=== PATIENT | male | born 1980 | race African-American/Black ===

== ENCOUNTER 2019-06-26 00:09 | Emergency (ER) | payer OTHER | END 2019-06-26 01:29 | disposition left against medical advice (07) | LOC: ER 00:09 | DX: Z53.21 Procedure and treatment not carried out due to patient leaving prior to being seen by health care provider (principal) ==

== ENCOUNTER 2024-02-14 19:02 | Emergency (ER) | payer OTHER ==
[~2024-02-14] VITALS: Ht 177.8 cm; Wt 91.0 kg
[2024-02-14 19:11] VITALS: BP 140/98; PULSE 98; RESP 16; TEMP 98.4; O2SAT 98
[2024-02-14] MEDS ORDERED: ONDANSETRON 4MG ODT PO STA (21:09)
[2024-02-14] MEDS ORDERED: KETOROLAC 30MG/ML VIAL IM ONE (21:15)
== END 2024-02-14 22:13 | disposition left against medical advice (07) ==
LOC: ER 19:02
DX: R14.0 Abdominal distension (gaseous) (principal); I10 Essential (primary) hypertension
CPT/HCPCS: 71045; 74176; 99284; J1885; Q0162